=== PATIENT | female | born 1940 | race Asian ===

== ENCOUNTER 2017-04-17 14:38 | Emergency (ER) | payer OTHER, MEDICAID ==
[2017-04-17 15:01] LABS: COLOR YELLOW; LEUKOCYTE ESTERASE,URINE 2+ (NEGATIVE); NITRITE,URINE NEGATIVE (NEGATIVE)
[2017-04-17 15:11] LABS: RBC,URINE 25-50 /hpf (0-3)
[2017-04-17 15:12] LABS: BACTERIA TRACE /hpf (NONE SEEN)
--- NOTE | 2017-04-17 15:26 | EDPHY ---
H & P Time Seen by Provider: 04/17/17 14:55 HPI/ROS: CHIEF COMPLAINT: Hematuria HISTORY OF PRESENT ILLNESS: 77-year-old female from [place] presents with her daughter. Patient has limited Nigerien abilities and her daughter is translating. Patient has a history of chronic kidney stones in the left kidney. She has needed surgical intervention and lithotripsy on a number of occasions. This morning the patient noted hematuria. Patient denies any flank pain, abdominal pain, nausea, vomiting, or dysuria. She denies any fevers or chills. No history of dehydration. She drinks significant amount of fluid according to her daughter. They are concerned regarding the hematuria. No other complaints. Patient was otherwise well prior to today. No fever, chills, chest pain, shortness of breath, palpitations, vomiting, diarrhea, urinary complaints, headache, lightheadedness. REVIEW OF SYSTEMS: Aside from elements discussed in the HPI, a comprehensive 10-point review of systems was reviewed and is negative. 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 CVA, diabetes. SOCIAL HISTORY: Here with her daughter whom she lives. VITAL SIGNS: see nurse's notes. No fever. GENERAL: Well-developed, well-nourished, in no acute distress. HEENT: Normal, no discharge or icterus, moist mucous membranes. Neck: supple, FROM. LUNGS: Clear to auscultation bilaterally, no wheezes, rhonchi or rales. CARDIAC: Regular rate and rhythm, no rubs, murmurs or gallops. ABDOMEN: Soft, nontender, nondistended, bowel sounds normal. No suprapubic pain. No distension. BACK: No CVA tenderness. No vertebral tenderness. EXTREMITIES: No edema, FROM. NEURO: Alert and oriented, grossly nonfocal. SKIN: Warm and dry, no rash. Smoking Status: Never smoked Constitutional: Initial Vital Signs Temperature (C) 37.0 C 04/17/17 14:46 Heart Rate 86 04/17/17 14:46 Respiratory Rate 16 04/17/17 14:46 Blood Pressure 146/81 H 04/17/17 14:46 O2 Sat (%) 96 04/17/17 14:46 O2 Delivery Mode Room Air Allergies/Adverse Reactions: aspirin Allergy (Unknown, Verified 03/12/13 17:28) eprosartan [Eprosartan] Allergy (Unknown, Verified 03/12/13 17:28) ezetimibe [Ezetimibe] Allergy (Unknown, Verified 03/12/13 17:28) metformin Allergy (Unknown, Verified 03/12/13 17:28) metronidazole Allergy (Unknown, Verified 03/12/13 17:28) promethazine Allergy (Unknown, Verified 03/12/13 17:28) rosiglitazone [Rosiglitazone] Allergy (Unknown, Verified 03/12/13 17:28) simvastatin Allergy (Unknown, Verified 03/12/13 17:28) tetracycline [Tetracycline] Allergy (Unknown, Verified 03/12/13 17:28) Home Medications: Medication Instructions Recorded Gtf Chromium 03/02/12 Mometasone Furoate Nasal [Nasonex] 2 sprays NASAL DAILY PRN 03/02/12 Omeprazole 20 mg PO 03/02/12 Potassium Citrate [Urocit-K 10meq 0 meq PO 03/02/12 (RX)] Cephalexin [Keflex (RX)] 500 mg PO TID 7 Days 04/17/17 Medical Decision Making ED Course/Re-evaluation: 77-year-old female presenting with a history of hematuria. Patient provided a urine sample on arrival to the emergency department. It is grossly clear. Laboratory analysis demonstrates 3+ blood, 2+ leukocyte esterase, 25-50 red blood cells per high-power field, 5-10 white blood cells per high-power field and trace bacteria. Patient's urine will be sent for culture. Given her comorbidities patient was placed on Keflex pending the culture results. Patient and her daughter understand well that if she should develop any back pain, vomiting, fevers, abdominal pain, is the calmer she should return immediately to the emergency department. She is comfortable with the plan of discharge. Differential Diagnosis: Differential diagnoses for the patient's symptom complex was considered including but not limited to hematuria, rhabdomyolysis, urinary tract infection , hemorrhagic cystitis, trauma, dehydration, kidney stone. - Data Points Laboratory Results: 04/17/17 14:40 Urine Color YELLOW Urine Appearance CLEAR Urine pH 7.0 (5.0-7.5) Ur Specific Kirby 1.010 (1.002-1.030) Urine Protein NEGATIVE (NEGATIVE) Urine Ketones NEGATIVE (NEGATIVE) Urine Blood 3+ H (NEGATIVE) Urine Nitrate NEGATIVE (NEGATIVE) Urine Bilirubin NEGATIVE (NEGATIVE) Urine Urobilinogen 0.2 EU EU (0.2-1.0) Ur Leukocyte Esterase 2+ H (NEGATIVE) Urine RBC 25-50 /hpf H /hpf (0-3) Urine WBC 3-5 /hpf H /hpf (0-3) Ur Epithelial Cells TRACE /lpf /lpf (NONE-1+) Urine Bacteria TRACE /hpf H /hpf (NONE SEEN) Urine Glucose NEGATIVE (NEGATIVE) Departure - Departure Disposition: Home, Routine, Self-Care Clinical Impression: Rule out UTI Hematuria Qualifiers: Hematuria type: unspecified type Qualified Code(s): R31.9 - Hematuria, unspecified Condition: Good Instructions: Hematuria (ED), Urinary Traction Infection in Older Adults (ED) Additional Instructions: Please drink plenty of fluid. Take antibiotic as directed. You may call for the results of the culture and 24-48 hours. If there is not a urinary tract infection you may stop taking the antibiotic. If you developed abdominal discomfort, flank pain, fever, vomiting, or other concerns, please return to the emergency department Referrals: Lynne Bonilla MD [Primary Care Provider] - As per Instructions Prescriptions: Cephalexin [Keflex (RX)] 500 mg PO TID 7 Days
[2017-04-17 15:37] VITALS: BP 138/88; PULSE 74; RESP 18; TEMP 98.2; O2SAT 93
== END 2017-04-17 15:36 | disposition home or self-care (01) ==
LOC: CED 14:38
DX: R31.9 Hematuria, unspecified (principal); E11.9 Type 2 diabetes mellitus without complications; Z86.73 Personal history of transient ischemic attack (TIA), and cerebral infarction without residual deficits
CPT/HCPCS: 81003-PO; 81015-PO

== ENCOUNTER → 2018-07-16 | Outpatient (CLI) | payer OTHER, MEDICAID | LOC: CIMAGING 10:59 | PROVIDERS: ATTEND Internal Medicine | DX: M19.012 Primary osteoarthritis, left shoulder (principal) | CPT/HCPCS: 73030-PO ==

== ENCOUNTER → 2018-08-02 | Outpatient (CLI) | payer OTHER, MEDICAID | LOC: FIMAGING 13:19 | PROVIDERS: ATTEND Internal Medicine | DX: Z13.820 Encounter for screening for osteoporosis (principal); M81.0 Age-related osteoporosis without current pathological fracture ==

== ENCOUNTER 2018-08-31 14:46 | Observation (INO) | payer OTHER, MEDICAID ==
[2018-08-31] MEDS ORDERED: NS 500 ML IV ONE (15:00)
--- NOTE | 2018-08-31 15:34 | EDPHY ---
H & P Time Seen by Provider: 08/31/18 15:00 HPI/ROS: HPI Chest pain. 78-year-old female from the office of her primary care physician Dr. Godinez. She presented to his office with complaint of chest pain, onset yesterday morning. Pain described as sharp and aching mid substernal and left anterior chest, lasting about 5 min at a time. Pain was more severe this morning. No associated shortness of breath. She states that she does not have chest pain currently. ROS: Constitutional: No fever, no chills. No weakness. Eyes: No discharge. No changes in vision. ENT: No sore throat. No nasal congestion or rhinorrhea. Respiratory: No cough. No shortness of breath. Cardiac: As above, no palpitations. Gastrointestinal: No abdominal pain, no vomiting, no diarrhea. Genitourinary: No hematuria. No dysuria or increased frequency with urination. Musculoskeletal: No back pain. No neck pain. No myalgias or arthralgias. Skin: No rashes. Neurological: No headache. No focal weakness or altered sensation. Past medical history: Left nephrectomy, cholecystectomy, left knee surgery, hypertension, ulcerative gastritis with GI bleed, kidney stones, type 2 diabetes , CVA, as above. Social history: Nonsmoker. Currently here with her son. No alcohol. Physical Exam: General Appearance: Alert, pleasant, no distress. This patient is responding to questions appropriately and in full sentences. This patient appears well- hydrated and well-nourished. Eyes: Pupils equal and round no pallor or injection. No lid edema, erythema or injection. Respiratory: There are no retractions, lungs are clear to auscultation with good air movement bilaterally. Cardiovascular: Regular rate and rhythm. No murmur appreciated. Gastrointestinal: Abdomen is soft and nontender, no masses, bowel sounds normal. No focal tenderness at McBurney's point. No Cabrales sign. Neurological: Motor sensory function is grossly intact. Cranial nerves are normal. Gait is normal. Skin: Warm and dry, no rashes. Musculoskeletal: Neck is supple and nontender. Extremities are symmetrical. No significant lower extremity edema or swelling. All joints range without pain or impingement. Psychiatric: No agitation. No depression. Database: EKG: EKG time is 2:56 p.m.; EKG shows a narrow complex normal sinus rhythm with a ventricular rate of 74. QS waves noted in 3 and AVF. The MN, QRS, QT intervals are within normal limits. There are no ST-T wave changes indicative of ischemic or injury pattern. No evidence of right heart strain. Interpreted by me. Imaging: Chest x-ray AP portable: The cardiac mediastinal silhouette is unremarkable. No evidence of infiltrate or pneumothorax. No acute cardiopulmonary disease process. Interpreted by me. Procedures: Emergency department course: Triage vital signs reviewed, she is markedly hypertensive. Triage vital signs are otherwise normal. IV was placed. She was placed on a monitoring and evaluation advisor. She currently does not have any chest pain. She has an allergy to aspirin. EKG obtained and reviewed by myself. Plan for observation admission for rule out discussed with the patient and her son. They endorse. 4:10 p.m., spoke with on-call hospitalist Dr. Levi Roberts. Case discussed in detail with him. He accepts this patient for admission to telemetry observation. 4:15 p.m., the patient was re-evaluated, blood pressure currently 143/88. She currently does not have any chest pain. Results of diagnostic workup discussed with her and her son. Plan for admission and transfer to [facility] discussed. They endorse. The patient's remaining emergency department course under my care has been uneventful. I have filled out the appropriate transfer paperwork. The patient was transferred in stable condition to [facility]. Differential Diagnosis: The differential diagnosis on this patient includes but is not limited to acute coronary syndrome, esophageal spasm, pulmonary embolism, aortic dissection, myocarditis, pericarditis, pleurisy, costochondritis. This represents a partial list of diagnoses considered. These considerations are based on history , physical exam, past history, reassessment and diagnostic testing. Smoking Status: Never smoked Constitutional: Initial Vital Signs Temperature (C) 36.9 C 08/31/18 14:53 Heart Rate 79 08/31/18 14:53 Respiratory Rate 16 08/31/18 14:53 Blood Pressure 185/102 H 08/31/18 14:53 O2 Sat (%) 95 08/31/18 14:53 O2 Delivery Mode Room Air Allergies/Adverse Reactions: aspirin Allergy (Unknown, Verified 03/12/13 17:28) eprosartan [Eprosartan] Allergy (Unknown, Verified 06/08/13 17:28) ezetimibe [Ezetimibe] Allergy (Unknown, Verified 03/12/13 17:28) metformin Allergy (Unknown, Verified 03/12/13 17:28) metronidazole Allergy (Unknown, Verified 03/12/13 17:28) promethazine Allergy (Unknown, Verified 03/12/13 17:28) rosiglitazone [Rosiglitazone] Allergy (Unknown, Verified 03/12/13 17:28) simvastatin Allergy (Unknown, Verified 03/12/13 17:28) tetracycline [Tetracycline] Allergy (Unknown, Verified 03/12/13 17:28) No Allergies [NKA] Allergy (Verified 11/14/15 17:28) Home Medications: Medication Instructions Recorded Gtf Chromium 03/02/12 Mometasone Furoate Nasal [Nasonex] 2 sprays NASAL DAILY PRN 03/02/12 Omeprazole 20 mg PO 03/02/12 Potassium Citrate [Urocit-K 10meq 0 meq PO 03/02/12 (RX)] Aspirin [Aspirin 81mg (*)] 81 mg PO HS 08/28/15 Acetaminophen [Tylenol 325mg (*)] 650 mg PO Q6 PRN #0 tab 09/06/15 Atorvastatin Calcium [Lipitor 10 10 mg PO HS #30 tab 09/06/15 mg (*)] Mometasone Furoate Nasal [Nasonex] 1 sprays NASAL DAILY PRN #1 mdi 09/06/15 Pantoprazole Sodium [Protonix 40mg 40 mg PO DAILYAC #30 tab 09/06/15 (*)] Potassium Citrate [Urocit-K 10meq 10 meq PO BID #60 tab 09/06/15 (*)] metFORMIN HCL [Glucophage 500 mg 250 mg PO BIDMEAL #60 tab 09/06/15 (*)] Nitrofurantoin Monohyd/M-Cryst 100 mg PO BID 5 Days cap 11/14/15 [Macrobid] Cephalexin [Keflex (RX)] 500 mg PO TID 7 Days cap 04/17/17 Medical Decision Making - Diagnostics Imaging Results: Imaging Impressions Chest X-Ray 08/31/18 15:01 Impression: Borderline enlargement of the heart without acute cardiopulmonary process. - Data Points Laboratory Results: 08/31/18 08/31/18 15:48 15:44 POC Sodium 150 mEq/L H mEq/L (135-145) POC Potassium 3.3 mEq/L mEq/L (3.3-5.0) POC Chloride 105.0 mEq/L mEq/L (97-110) POC Total CO2 25 mEq/L mEq/L (22-31) POC BUN 19 mg/dL mg/dL (7-23) POC Creatinine 1.1 mg/dL H mg/dL (0.6-1.0) POC Glucose 103 mg/dL H mg/dL (70-100) POC Calcium 9.6 mg/dL mg/dL (8.5-10.4) POC Troponin I 0.00 ng/mL ng/mL (0.00-0.08) Medications Given: Discontinued Medications Sodium Chloride (Ns) 500 mls @ 1,000 mls/hr IV EDNOW ONE PRN Reason: Protocol Stop: 08/31/18 15:29 Last Admin: 08/31/18 16:05 Dose: 500 mls Point of Care Test Results: Chemistry 08/31/18 08/31/18 15:48 15:44 POC Sodium 150 mEq/L H mEq/L (135-145) POC Potassium 3.3 mEq/L mEq/L (3.3-5.0) POC Chloride 105.0 mEq/L mEq/L (97-110) POC Total CO2 25 mEq/L mEq/L (22-31) POC BUN 19 mg/dL mg/dL (7-23) POC Creatinine 1.1 mg/dL H mg/dL (0.6-1.0) POC Glucose 103 mg/dL H mg/dL (70-100) POC Calcium 9.6 mg/dL mg/dL (8.5-10.4) POC Troponin I 0.00 ng/mL ng/mL (0.00-0.08) Departure - Departure Disposition: [facility] Inpatient Acute Clinical Impression: Chest pain Referrals: Lynne Bonilla MD [Primary Care Provider] - As per Instructions
[2018-08-31] MEDS ORDERED: ONDANSETRON 4 MG/2 ML VIAL IVP PRN (16:12)
[2018-08-31] MEDS ORDERED: ACETAMINOPHEN 325 MG TAB PO PRN (16:12)
[2018-08-31] MEDS ORDERED: ONDANSETRON DISINTEGRATING 4 MG TAB PO PRN (16:12)
[2018-08-31] MEDS ORDERED: NITROGLYCERIN 0.4 MG BTL SL PRN (16:14)
--- NOTE | 2018-08-31 16:22 | CPEKG ---
Test Reason : OPEN Blood Pressure : / mmHG Vent. Rate : 074 BPM Atrial Rate : 077 BPM P-R Int : 166 ms QRS Dur : 085 ms QT Int : 391 ms P-R-T Axes : 035 -42 096 degrees QTc Int : 434 ms Sinus rhythm Inferior infarct, old Lateral leads are also involved Confirmed by Gracy Doshi ([id number]) on 08/31/2018 4:22:31 PM Referred By: Confirmed By:Gracy Doshi
[2018-08-31] MEDS ORDERED: DICLOFENAC SODIUM 1% 100 GM GEL TP PRN (18:06)
--- NOTE | 2018-08-31 18:06 | PDGENHP ---
History and Physical - Chief Complaint Chest Pain - History of Present Illness Danyelle Carranza is a 78 yo F with a PMHx of HTN, T2DM< GIB, CVA, Nephrolithiasis who presents to [facility] for chest pain. She reports intermittent episodes of chest pain that started a few days ago. She presented to her PCP for complaint today after worsening of pain who recommended she present to ED. Chest pain usually lasts approx 5 minutes, associated with L-sided chest pain described as sharp and aching in quality. History Information - Allergies/Home Medication List Allergies/Adverse Reactions: eprosartan [Eprosartan] Allergy (Unknown, Verified 08/31/18 18:05) Other-Enter Comments ezetimibe [Ezetimibe] Allergy (Unknown, Verified 08/31/18 18:05) Other-Enter Comments metronidazole Allergy (Unknown, Verified 03/12/13 17:28) promethazine Allergy (Unknown, Verified 03/12/13 17:28) rosiglitazone [Rosiglitazone] Allergy (Unknown, Verified 03/12/13 17:28) simvastatin Allergy (Unknown, Verified 03/12/13 17:28) tetracycline [Tetracycline] Allergy (Unknown, Verified 03/12/13 17:28) No Allergies [NKA] Allergy (Verified 11/14/15 17:28) Home Medications: Aspirin [Aspirin 81mg (*)] 81 mg PO DAILY 08/28/15 [Last Taken 08/27/15 21:00] Diclofenac Sodium 1% [Voltaren Gel (*)] 1 sarina TP DAILY PRN 08/31/18 [Last Taken Unknown] Pantoprazole Sodium [Protonix 40mg (*)] 40 mg PO DAILY 08/31/18 [Last Taken Unknown] Potassium Citrate [Urocit-K 10meq (*)] 10 meq PO BID 08/31/18 [Last Taken Unknown] I have personally reviewed and updated: family history, medical history, social history, surgical history - Past Medical History CVA, diabetes type 2, GI bleed, hypertension - Surgical History Additional surgical history: L sided nephrecotomy - Family History Positive for: non-pertinent - Social History Smoking Status: Never smoked Review of Systems Review of Systems: ROS: 10pt was reviewed & negative except for what was stated in HPI & below Physical Exam Physical Exam: Temp Pulse Resp BP Pulse Ox 36.6 C 75 14 169/97 H 96 08/31/18 17:50 08/31/18 17:50 08/31/18 17:50 08/31/18 17:50 08/31/18 17:50 Lab Data & Imaging Review POC Sodium 150 mEq/L (135-145) H 08/31/18 15:48 POC Potassium 3.3 mEq/L (3.3-5.0) 08/31/18 15:48 POC Chloride 105.0 mEq/L (97-110) 08/31/18 15:48 POC Total CO2 25 mEq/L (22-31) 08/31/18 15:48 POC BUN 19 mg/dL (7-23) 08/31/18 15:48 POC Creatinine 1.1 mg/dL (0.6-1.0) H 08/31/18 15:48 POC Glucose 103 mg/dL (70-100) H 08/31/18 15:48 POC Calcium 9.6 mg/dL (8.5-10.4) 08/31/18 15:48 POC Troponin I 0.00 ng/mL (0.00-0.08) 08/31/18 15:44 EKG Interpretation: Positive for: NS ST wave abnormalities Assessment & Plan Assessment: Chest Pain - Intermittent, resolved upon admission - Troponin negative, EKG w/o any acute ST-T wave changes - Will trend Troponins x3 - Will order MPS for the AM, NPO at midnight - Continue home ASA, Atorvastatin Hypernatremia - Na 150 on admission - Encouraged PO intake - Repeat BMP in the AM HTN - BP elevated on admission, improved - Continue home BP medications T2DM - Will hold home Metformin, order SSI FEN: IVF PRN, NPO after midnight PPx: SubQ Heparin, SCDs Code: FULL Dispo: Admit to Observation
[2018-08-31] MEDS ORDERED: D50W 25 GM/50 ML SYR IVP PRN (18:07)
[2018-08-31] MEDS ORDERED: ATORVASTATIN CALCIUM 10 MG TAB PO SCH (21:00)
[2018-08-31] MEDS: HEPARIN 5,000 UNIT/0.5 ML INJ SC SCH (21:32)
[2018-09-01] MEDS: HEPARIN 5,000 UNIT/0.5 ML INJ SC SCH ×2 (06:52→14:09)
[2018-09-01] MEDS ORDERED: ASPIRIN 325 MG TAB PO SCH (09:00)
[2018-09-01] MEDS ORDERED: PANTOPRAZOLE SODIUM 40 MG TAB PO SCH (09:00)
[2018-09-01] MEDS ORDERED: ASPIRIN 81 MG CHEWABLE TAB PO SCH (09:00)
[2018-09-01] MEDS: INSULIN LISPRO 100 UNIT/ML SC SCH ×2 (09:30→12:15)
--- NOTE | 2018-09-01 12:37 | ASMTCMCOM ---
CM Note CM Note Notes: 09/01/2018 Case Management Note Discussed pt during rounds this morning. Pt admitted after episode of chest pain. Lexascan planned for today. Daughter Nika [phone] present. Met w/pt Nika and pt to discuss d/c needs. Pt lives with her adult children. Pt has h/o stroke approximately 3 years ago with short stay [facility] that Nika was unable to recall. Pt no longer drives but her children are happy to transport her. master police detective is Dr Bonilla with [facility]. PT has cleared pt. Case Management d/c poc: independent with follow up as directed. Case Management available if needs change. Date Signed: 09/01/2018 12:36 PM Electronically Signed By:Joselin Chaudhari RN
--- NOTE | 2018-09-01 14:01 | HOSPPROG ---
Hospitalist Progress Note Assessment/Plan: 78 yo female with hx of of HLD and Diabetes admitted with chest pain which has now resolved. EKG and troponin have been unremarkable. Chest Pain - Intermittent, resolved upon admission - Troponin negative, EKG w/o any acute ST-T wave changes - Negative Troponin - Milagros scan pending - Continue home ASA, Atorvastatin Hypernatremia, resolved - Na 150 on admission - Encouraged PO intake HTN - BP elevated on admission, improved - Continue home BP medications T2DM - Will hold home Metformin, order SSI FEN: IVF PRN, NPO awaiting Milagros PPx: SubQ Heparin, SCDs Code: FULL Dispo: pending stress test. Subjective: no cp or sob. no n/v. Objective: Vital Signs Temp Pulse Resp BP Pulse Ox 35.5 C L 81 22 H 163/85 H 96 09/01/18 11:49 09/01/18 11:49 09/01/18 11:49 09/01/18 11:49 09/01/18 11:49 Laboratory Results 09/01/18 04:06 08/31/18 09/01/18 09/02/18 05:59 05:59 05:59 Intake Total 500 Output Total 350 Balance 150 - Physical Exam Constitutional: no apparent distress Eyes: PERRL Ears, Nose, Mouth, Throat: moist mucous membranes, hearing normal Cardiovascular: regular rate and rhythym, No edema Respiratory: no respiratory distress, no rales or rhonchi, clear to auscultation Gastrointestinal: normoactive bowel sounds, soft, non-tender abdomen Skin: warm Neurologic: AAOx3 Psychiatric: interacting appropriately, not anxious, not encephalopathic Lymph, Heme, Immunologic: No petechiae ICD10 Worksheet Patient Problems: Problems Problem Status Onset Chest pain Acute Cerebrovascular accident (CVA) due to occlusion of left middle cerebral artery Acute DM2 (diabetes mellitus, type 2) Acute Dyslipidemia Acute
[2018-09-01] MEDS ORDERED: REGADENOSON 0.4 MG/5 ML SYR IVP ONE (14:06)
--- NOTE | 2018-09-01 14:31 | PDCARST ---
CAR Stress Test Results Type of Stress Test: Lexiscan stress test Indication: cp Description of Procedure: After informed consent was obtained, pt was established to ECG, blood pressure, HR and oximetry monitoring. STRESS EKG AND HEMODYNAMIC DATA. Resting heart rate: 79 BPM. Resting ECG: SR. Resting blood pressure: 136/84 mmHg. O2 saturation at rest: 93%. Peak heart rate: 87 BPM. Peak blood pressure: 124/80 mmHg. Arrhythmias: none. Symptoms: The patient experienced no typical symptoms of angina during stress or recovery. Stress/Infusion ECG: No change in rhythm with no significant ST/T wave changes. Stress/infusion O2 saturation: 91% Impression: Uneventful Lexiscan infusion. Conclusion: Await nuclear images.
[2018-09-01 16:08] VITALS: BP 127/76
--- NOTE | 2018-09-01 17:34 | PDDCSUM ---
Discharge Summary Discharge Summary: 78 yo female with hx of non insulin dependent DM admitted for chest pain r/o. Had normal w/u to include EKG, Milagros scan, troponins, telemetry. CP has resolved. Etiology unclear. VS stable. She will f/u with her PCP next week. Discharge Diagnosis #Chest Pain #DM: will resume Metformin in 48 hours #HLD: cont with Statin Exam: NAD AAOX3 RRR CTA B S/NT/ND MEDS: SEE MED REC F/U: PER ABOVE TOTAL TIME SPENT ON D/C IS 35 MINS
== END 2018-09-01 17:58 | disposition home or self-care (01) ==
LOC: CED 14:46 → CEDHOLD 16:11 → F2W 17:39
PROVIDERS: ADMIT Internal Medicine; ATTEND Family Medicine
DX: R07.89 Other chest pain (principal); E11.9 Type 2 diabetes mellitus without complications; E78.5 Hyperlipidemia, unspecified; Z79.84 Long term (current) use of oral hypoglycemic drugs; Z87.442 Personal history of urinary calculi; Z88.2 Allergy status to sulfonamides
CPT/HCPCS: 71045; 78452; 93005; 96360; 96372; 97161; 97165; 99285; A9500; G0378; G8978; G8979; G8980; G8987; G8988; G8989; J1644; J2785; 80048-PO; 84484-PO